=== PATIENT | female | born 1965 | race Two or more races ===

== ENCOUNTER → 2019-09-15 | Emergency (ER) | payer SELFPAY ==
[~2019-09-15] VITALS: Ht 154.9 cm; Wt 78.5 kg
[2019-09-15 19:49] LABS: Basophils # (auto) 0 10 ^3/uL (0-0.2); Basophils % (auto) 0.6 % (0.0-2.0); Eosinophils # (auto) 0.2 10 ^3/uL (0-0.8); Eosinophils % (auto) 2.6 % (0.0-7.0); Hematocrit 43.7 % (36.0-46.0); Hemoglobin 14.7 g/dL (12.2-16.2); Lymphocytes # (auto) 2.9 10 ^3/uL (0.4-5.4); Lymphocytes % (auto) 40.9 % (10.0-50.0); Mean Corpuscular Hemoglobin 29.9 pg (28.0-32.0); Mean Corpuscular Hgb Conc. 33.6 g/dL (32.0-36.0); Mean Corpuscular Volume 88.8 fL (80.0-100.0); Monocytes # (auto) 0.3 10 ^3/uL (0-1.3); Monocytes % (auto) 4.6 % (0.0-12.0); Neutrophils # (auto) 3.6 10 ^3/uL (1.6-8.6); Neutrophils % (auto) 51.3 % (37.0-80.0); Nucleated Red Blood Cells % 0.1 %; Platelet Count (auto) 239 10^3/uL (140-450); Red Blood Cells 4.92 10^6/uL (4.0-5.20); Red Cell Distribution Width 13.8 % (11.8-14.3); White Blood Cell 7.1 10^3/uL (4.4-10.8)
[2019-09-15 20:06] LABS: Albumin 3.9 g/dL (3.4-5.0); Anion Gap 9 (5-15); Blood Urea Nitrogen 22 mg/dL (7-18); Carbon Dioxide 26 mmol/L (21-32); Chloride 105 mmol/L (98-107); Glucose 98 mg/dL (74-106); Magnesium 2.6 mg/dL (1.6-2.6); Sodium 140 mmol/L (136-145)
[2019-09-15 20:10] LABS: INR 1.12 (0.9-1.15); Partial Thromboplastin Time 26.4 sec (23.64-32.05)
[2019-09-15 20:11] LABS: Alanine Aminotransferase 22 U/L (13-56); Alkaline Phosphatase 54 U/L (45-117); Aspartate Aminotransferase 17 U/L (15-37); BUN/Creatinine Ratio 24.7; Bilirubin, Total 0.2 mg/dL (0.2-1.0); GFR African American 86 mL/min; GFR Non-African American 71 mL/min; Total Protein 7.8 g/dL (6.4-8.2)
[2019-09-15 21:00] VITALS: BP 134/76
== END | disposition home or self-care (01) ==
LOC: ER 18:00
DX: I16.0 Hypertensive urgency (principal); I63.89 Other cerebral infarction; E11.9 Type 2 diabetes mellitus without complications
CPT/HCPCS: 36415; 70450; 71045; 80053; 83735; 83880; 84443; 84484; 85025; 85379; 85610; 85730; 93005

== ENCOUNTER 2020-02-21 09:54 | Emergency (ER) | payer MEDICAID ==
[~2020-02-21] VITALS: Ht 157.5 cm; Wt 77.1 kg
[2020-02-21 10:24] VITALS: BP 140/101
== END 2020-02-21 12:06 | disposition home or self-care (01) ==
LOC: ER 09:54
DX: G47.30 Sleep apnea, unspecified (principal); F41.9 Anxiety disorder, unspecified
CPT/HCPCS: 71045